=== PATIENT | female | born 1970 | race Caucasian/White ===

== ENCOUNTER 2022-04-21 17:13 | Observation (INO) ==
[2022-04-21] MEDS ORDERED: Iopamidol - 370 500 ML MLS IVP ONE (18:00)
[2022-04-21] MEDS ORDERED: Ondansetron 4 MG/2 ML VIAL IVP ONE (18:02)
[2022-04-21] MEDS ORDERED: *HR* FentaNYL (PF) 100 MCG/2 ML VIAL IVP ONE (18:02)
[2022-04-21] MEDS ORDERED: 0.9 % Sodium Chloride 500 ML IVC ONE (18:02)
[2022-04-21] MEDS ORDERED: Piperacillin/Tazobactam 3.375 GM in 0.9 % Sodium Chloride Mini Bag 100 ML IVPB ONE (18:08)
[2022-04-21 18:26] LABS: Basophils % 0.2 %; Eosinophils % 0.5 %; Hematocrit 40.1 % (35.3-44.9); Hemoglobin 13.9 g/dL (11.5-15.4); Immature Granulocytes % 0.4 % (0-4); Lymphocytes # 0.8 K/mcL (0.6-4.6); Lymphocytes % 9.6 %; Mean Corpuscular HGB Conc 34.7 g/dL (31.6-35.5); Mean Corpuscular Hemoglobin 32.3 pg (28.0-33.3); Mean Platelet Volume 10.6 fL (9.4-12.4); Monocytes # 0.4 K/mcL (0.0-1.3); Monocytes % 4.8 %; Neutrophils # 6.9 K/mcL (1.6-8.9); Platelet Count 151 K/mcL (140-400); Red Blood Count 4.31 M/mcL (3.82-4.97); Segmented Neutrophils % 84.5 %; White Blood Count 8.2 K/mcL (4.3-11.1)
[2022-04-21 18:44] LABS: BUN/Creatinine Ratio 15 (6-26); Blood Urea Nitrogen 14 mg/dL (6-20); Calcium 9.7 mg/dL (8.6-10.3); Carbon Dioxide 25 mEq/L (23-29); Chloride 99 mEq/L (98-107); Glucose 97 mg/dL (70-105); Osmolality,Calculated 278 (280-300); Potassium 3.7 mEq/L (3.5-5.1); Sodium 134 mEq/L (136-145); eGFR For African Americans > 60 (> 60); eGFR For Non-African Americans > 60 (> 60)
[2022-04-21] MEDS ORDERED: Ondansetron ODT 4 MG TAB.RAPDIS SL PRN (22:44)
[2022-04-21 23:09] LABS: Hematocrit 36.2 % (35.3-44.9); Mean Corpuscular Hemoglobin 32.4 pg (28.0-33.3); Mean Corpuscular Volume 95.3 fL (83.0-100.0); Mean Platelet Volume 10.2 fL (9.4-12.4); Platelet Count 126 K/mcL (140-400); Red Cell Distribution Width 12.3 % (11.5-14.5); White Blood Count 9.5 K/mcL (4.3-11.1)
[2022-04-21 23:10] LABS: Hemoglobin 12.3 g/dL (11.5-15.4)
[2022-04-21] MEDS: Ibuprofen 600 MG TABLET PO PRN (23:21)
[2022-04-21] MEDS: 0.9 % Sodium Chloride 1,000 ML IVC SCH (23:22)
[2022-04-22 02:59] LABS: Hematocrit 36.5 % (35.3-44.9); Hemoglobin 12.1 g/dL (11.5-15.4); Mean Corpuscular HGB Conc 33.2 g/dL (31.6-35.5); Mean Corpuscular Hemoglobin 31.9 pg (28.0-33.3); Mean Corpuscular Volume 96.3 fL (83.0-100.0); Mean Platelet Volume 11.2 fL (9.4-12.4); Platelet Count 128 K/mcL (140-400); Red Blood Count 3.79 M/mcL (3.82-4.97); Red Cell Distribution Width 12.3 % (11.5-14.5); White Blood Count 9.4 K/mcL (4.3-11.1)
[2022-04-22 03:21] LABS: BUN/Creatinine Ratio 14 (6-26); Blood Urea Nitrogen 14 mg/dL (6-20); Calcium 8.8 mg/dL (8.6-10.3); Carbon Dioxide 25 mEq/L (23-29); Chloride 104 mEq/L (98-107); Glucose 103 mg/dL (70-105); Magnesium 1.7 mg/dL (1.6-2.6); Osmolality,Calculated 287 (280-300); Potassium 3.5 mEq/L (3.5-5.1); Sodium 138 mEq/L (136-145); eGFR For African Americans > 60 (> 60); eGFR For Non-African Americans 57 (> 60)
[2022-04-22] MEDS: *HR* Heparin 5,000 UNIT/ML VIAL SQ SCH ×2 (06:32→13:04)
[2022-04-22] MEDS ORDERED: *HR* OxyCODONE/APAP 5/325 TABLET PO PRN (08:17)
[2022-04-22] MEDS ORDERED: Piperacillin/Tazobactam 3.375 GM in 0.9 % Sodium Chloride Mini Bag 100 ML IVPB SCH ×2 (12:00)
[2022-04-22 12:08] VITALS: BP 110/73; PULSE 98; TEMP 101.1; O2SAT 97
[2022-04-22] MEDS: 0.9 % Sodium Chloride 1,000 ML IVC SCH (12:09)
[2022-04-22] MEDS: Ibuprofen 600 MG TABLET PO PRN (12:10)
[2022-04-22] MEDS ORDERED: BuPROPion XL (24 HR) 150 MG TABLET PO SCH (14:00)
[2022-04-22 14:34] LABS: Influenza A PCR Negative (Negative); Influenza B PCR Negative (Negative); Resp. Syncytial Virus PCR Negative (Negative)
[2022-04-22 14:44] LABS: SARS-CoV-2 by PCR (In House) Negative (Negative)
[2022-04-22] MEDS ORDERED: clonazePAM 0.5 MG TABLET PO SCH (21:00)
== END 2022-04-22 15:21 | disposition home or self-care (01) ==
LOC: EMEROOARM 17:13 → 3ANU 17:13
PROVIDERS: ADMIT Surgery; ATTEND Surgery
PROC: IRDRAIN (2022-04-22 12:00)